=== PATIENT | female | born 1935 | race Caucasian/White ===

== ENCOUNTER → 2016-09-02 | Outpatient (CLI) | payer OTHER ==
[~2016-09-02] MED LIST: ALPOPS1510 OPL; AMLO2.5T PO; CSPOPS OPL; DVN160125 PO; LOVA40TA4 PO; PRED1SUS3; [UNRECOGNIZED DRUG - OTHER] OPL
[2016-09-02 09:45] LABS: ALT/SGPT 23 U/L (12-78); BLOOD UREA NITROGEN 29 mg/dl (7-18); BUN/CREATININE RATIO 23.9 (10-20); CARBON DIOXIDE 28 mmol/L (21-32); CHLORIDE 105 mmol/L (98-107); GLUCOSE 86 mg/dl (70-99); POTASSIUM 3.9 mmol/L (3.5-5.1); SODIUM 142 mmol/L (136-145)
[2016-09-02 09:55] LABS: ALKALINE PHOSPHATASE 64 U/L (45-117); AST/SGOT 21 U/L (15-37)
== END | disposition home or self-care (01) ==
LOC: C.LAB1850 07:33
PROVIDERS: ATTEND Internal Medicine
DX: E78.5 Hyperlipidemia, unspecified (principal); M81.0 Age-related osteoporosis without current pathological fracture; I10 Essential (primary) hypertension

== ENCOUNTER → 2016-12-25 | Outpatient (CLI) | payer OTHER ==
[2016-12-25 10:08] LABS: ALT/SGPT 20 U/L (12-78); AST/SGOT 17 U/L (15-37); BLOOD UREA NITROGEN 24 mg/dl (7-18); BUN/CREATININE RATIO 21.9 (10-20); CALCIUM 9.4 mg/dl (8.5-10.1); CARBON DIOXIDE 27 mmol/L (21-32); CHLORIDE 102 mmol/L (98-107); GLUCOSE 85 mg/dl (70-99); POTASSIUM 3.7 mmol/L (3.5-5.1); SODIUM 138 mmol/L (136-145)
[2016-12-25 10:19] LABS: ALB/GLOB RATIO 1.1 (0.9-2); ALKALINE PHOSPHATASE 59 U/L (45-117)
== END | disposition home or self-care (01) ==
LOC: C.LAB1850 07:35
PROVIDERS: ATTEND Internal Medicine
DX: M81.0 Age-related osteoporosis without current pathological fracture (principal); I10 Essential (primary) hypertension; E78.5 Hyperlipidemia, unspecified

== ENCOUNTER → 2017-06-24 | Outpatient (CLI) | payer OTHER ==
[2017-06-24 09:54] LABS: HEMATOCRIT 39.5 % (37-47); HEMOGLOBIN 13.3 g/dL (12.0-16.0); MEAN CELL VOLUME 100.8 fL (80-100); MEAN CORPUSCULAR HEMOGLOBIN 33.9 pg (25-34); MEAN CORPUSCULAR HGB CONC 33.7 g/dl (32-36); MEAN PLATELET VOLUME 9.8 fL (7.4-10.4); PLATELET COUNT 311 K/uL (130-400); RED CELL DISTRIBUTION WIDTH CV 13.5 % (11.5-14.5); RED CELL DISTRIBUTION WIDTH SD 49.3 fL (36.4-46.3); WHITE BLOOD COUNT 7.42 K/uL (4.8-10.8)
[2017-06-24 10:26] LABS: ALT/SGPT 23 U/L (12-78); AST/SGOT 16 U/L (15-37); BLOOD UREA NITROGEN 22 mg/dl (7-18); CALCIUM 9.4 mg/dl (8.5-10.1); CARBON DIOXIDE 28 mmol/L (21-32); CHOLESTEROL 233 mg/dl (0-200); CREATININE 1.27 mg/dl (0.60-1.20); GLUCOSE 91 mg/dl (70-99); POTASSIUM 3.6 mmol/L (3.5-5.1); SODIUM 138 mmol/L (136-145)
[2017-06-24 10:29] LABS: LDL CHOLESTEROL CALCULATED 109 mg/dl
== END | disposition home or self-care (01) ==
LOC: C.LAB1850 07:43
PROVIDERS: ATTEND Internal Medicine
DX: E78.5 Hyperlipidemia, unspecified (principal); I10 Essential (primary) hypertension; M81.0 Age-related osteoporosis without current pathological fracture

== ENCOUNTER 2018-05-16 09:16 | Inpatient (IN) ==
[2018-05-16] MEDS ORDERED: AMPICILLIN/SULBACTAM SOD 3,000 MG in 0.9 % SODIUM CHLORIDE 100 ML IV STA (09:50)
[2018-05-16 10:32] LABS: Basophils # (auto) 0.02 K/uL (0-0.2); Basophils % (auto) 0.2 %; Eosinophils # (auto) 0.04 K/uL (0-0.5); Eosinophils % (auto) 0.4 %; Hematocrit (blood only) 42.1 % (37-47); Hemoglobin 14.3 g/dL (12.0-16.0); Immature Granulocytes # (auto) 0.02 K/uL (0.00-0.02); Immature Granulocytes % (auto) 0.2 %; Lymphocytes # (auto) 1.52 K/uL (1.2-3.4); Lymphocytes % (auto) 16.3 %; Mean Corpuscular Volume 100.7 fL (80-100); Mean Platelet Volume 9.9 fL (7.4-10.4); Monocytes # (auto) 1.24 K/uL (0.11-0.59); Monocytes % (auto) 13.3 %; Neutrophils % (auto) 69.6 %; Platelet Count 306 K/uL (130-400); RDW Coefficient of Variation 13.2 % (11.5-14.5); RDW Standard Deviation 48.4 fL (36.4-46.3); Red Blood Count 4.18 M/uL (4.2-5.4); White Blood Count 9.34 K/uL (4.8-10.8)
--- NOTE | 2018-05-16 10:45 | History & Physical Report ---
Date of Service May 16, 2018 Assessment & Plan (1) Tenosynovitis: - Admit to med/surg - Continue unasyn for psuedomonas coverage from edwardo bite. No leukocytosis and afebrile upon admission. - Xray complete. Will check MRI of the R wrist. - Consult ortho for possible needs for I&D - Will make NPO for now until Xray and ortho recs. - Continue tylenol and morphine IV for pain relief (2) HTN (hypertension): - Cont amlodipine 2.5 mg daily, losartan-HCTZ 1 tab daily (3) High cholesterol: - Cont lovastatin 40 mg daily (4) Meningioma: - Subfrontal, s/p surg resection, origionally dx in [place] [address] Greene - Pt underwent gamma knife radiosurgery on 08/09/2017 which was uncomplicated. -Stable (5) Osteoporosis: - Follow Vit D level per PCP (6) Vitamin D deficiency: As above. 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 - Hydrate gently, NSS at 80 ml/hr x 10 hrs and keep NPO for possible surgery. (9) Hypokalemia: - 3.4 upon admission, replaced with 20 meq PO. Follow prp. (10) DVT prophylaxis: - Teds, scds, ambulatory. No chemical prophylaxis in the setting of possible surgical procedure. History of Present Illness Chief Complaint: Cat bite Primary Care Provider: Herberth Quiroz MD This is an 82 yo F with PMHx of HTN, glaucoma, meningioma s/p resection, HLD, osteoporosis, Vit D deficiency who presents after sustained edwardo bite to the R hand which occurred on 05/15/18. Pain, swelling and redness has worsened overnight and now she is having difficulty moving her fingers and wrist without pain. She denies fever or chills. She has taken ibuprofen for pain. Pt did not take her regularly scheduled medications this morning. Unasyn has been started in the ER, and xray of the hand is pending. Allergies Allergy/AdvReac Type Severity Reaction Status Date / Time codeine AdvReac Unknown NAUSEA Verified 02/18/19 10:28 prochlorperazine AdvReac Unknown NAUSEA Verified 05/16/18 10:28 Home Medications Home Medications Medication Instructions Recorded Confirmed Type amlodipine 2.5 mg PO DAILY 05/16/18 05/16/18 History brimonidine 1 drp OPL BID 05/16/18 05/16/18 History dorzolamide-timolol 1 drp OPL BID 05/16/18 05/16/18 History losartan-hydrochlorothiazide 1 tab PO DAILY 05/16/18 05/16/18 History lovastatin 40 mg PO DAILY 05/16/18 05/16/18 History tafluprost (PF) [Zioptan (PF)] 1 drp OPL QPM 05/16/18 05/16/18 History Past Med/Surg History Medical History Renal insufficiency Glaucoma Vitamin D deficiency Osteoporosis Tenosynovitis (Acute) HTN (hypertension) (Chronic) High cholesterol (Chronic) Meningioma (Resolved) Wrist fracture, left (Acute) Hx of glaucoma Family History Other Family history non-contributory Social History marital status: / Current Living Situation: Alone Current Living Situation Comment: debbi has apartment in patient's home current occupational status: retired Other Information That Helps Us Care for You: No Feels Safe at Home: Yes Smoking Status: Never smoker Do You Dip or Chew Tobacco: No Second Hand Exposure: No Tobacco Cessation Education Requested by Patient: No Hx Alcohol Use: Yes Alcohol type: wine Alcohol Intake Frequency: 0-2 drinks per day Hx Substance Use: Yes substance use type: does not use Beliefs That Will Affect Care: None Preferred Language: Zambian Communication Ability: Effective Nutrition Manager Required: No Review of Systems Constitutional: no fever, no chills, no sweats and no fatigue Eyes: no diplopia and no worsening vision Ear, Nose, Mouth, Throat: no dizziness, no nasal discharge, no facial pain and no sore throat Respiratory: no cough, no dyspnea and no wheezing Cardiovascular: no chest pain, no palpitations, no lightheadedness and no syncope Gastrointestinal: no nausea, no vomiting and no constipation no diarrhea Genitourinary (Female): no dysuria, no urinary frequency and no urinary incontinence Musculoskeletal: as per Subjective / HPI (involving the R wrist); no back pain and no muscle weakness Integumentary: no rash, no lesions and no wounds Neurologic: no gait abnormality, no falls, no numbness, no dizziness and no syncope Psychiatric: no depression and no anxiety Endocrine: no fatigue Physical Exam 2 Vital Signs (Past 24 Hours): Last Vital Signs Temp 36.6 C 05/16/18 09:21 Pulse 68 05/16/18 09:21 Resp 20 05/16/18 09:21 BP 113/70 05/16/18 09:21 Pulse Ox 97 05/16/18 09:21 Physical Exam: General: awake, alert, no apparent distress, appears much younger than stated age. Head: Normocephalic, atraumatic ENT: PERRL, EOMI, no pharyngeal exudate, mucous membranes moist Chest: Clear to auscultation, on room air, no adventitious breath sounds Cardiac: Regular rate and rhythm, no murmur, no JVD, normal peripheral pulses, good capillary refill Abdominal: NABS x 4 quadrants, soft, nontender to palpation, no rebound, guarding or tenderness Extremities: R hand edematous, bite michelet over posterior wrist, erythema extends up 1/3 of the forearm. No tenderness in the elbow. Pt is able to move all fingers but not full ROM due to edema and pain. Otherwise normal inspection, no peripheral edema or erythema, calfs nontender to palpation Psych: Normal mood and affect Neuro: AAO x 3, strength intact bilaterally and related 5/5, no motor deficits, speech is clear, no peripheral sensory deficits Code Status & VTE Plan Code Status FULL Supervising Physician Co-Signing Physician Notes Attending note: patient seen and examined with Maryam Jaramillo PA-C. I agree with her HPI, history, exam, ROS and A/P. I personally reviewed the labs and imaging findings. I discussed with Sebastian Linda with ortho. Patient had a cat bite last night on dorsal surface of right wrist. She noticed pain immediately and then the wrist and dorsal aspect of hand started to swell. No fever or chills over night. Erythema and swellling progressed, now she cannot move her fingers. She has experienced cat bites in the past but nothing this serious, just some cellulitis. Ortho saw patient in the ED, concerns for tenosynovitis, want to check MRI hand and wrist now. - Tenosynovitis: check MRI, start on Unasyn, IV fluids, keep NPO until decision made on surgery today, pain control for other details see the H&P
[2018-05-16 10:48] LABS: BUN Creatinine Ratio 19.6 (10-20); Calcium 9.2 mg/dl (8.5-10.1); Creatinine Clr Calc Pharmacy 24.3 ml/min; Est GFR (African American) 41.2; Est GFR (Non-African American) 35.5; Potassium 3.4 mmol/L (3.5-5.1)
[2018-05-16] MEDS ORDERED: POTASSIUM CHLORIDE 10 MEQ TABCR PO STA (11:00)
--- NOTE | 2018-05-16 11:10 | XRay Report ---
RIGHT WRIST 4 VIEWS HISTORY: Cat bite. COMPARISON: None. FINDINGS: There is no fracture or dislocation. The bones are osteopenic. Diffuse soft tissue swelling within the wrist and dorsum of the hand. No underlying bony destruction. Severe cartilage space narr owing at the first carpometacarpal joint and mild cartilage space narrowing at the radiocarpal joint. No radiopaque foreign bodies. IMPRESSION: 1. Soft tissue swelling within the wrist and dorsum of the hand. 2. No bony destruction. 3. No radiopaque foreign bodies. Electronically signed by: Aristeo Winter M.D. 05/16/2018 11:08 AM
[2018-05-16] MEDS ORDERED: ACETAMINOPHEN 325 MG TAB PO PRN (12:05)
[2018-05-16] MEDS ORDERED: MoRPHine SULFATE 4 MG/ML 1 ML CARP\\VIAL IV PRN ×2 (12:05)
[2018-05-16] MEDS ORDERED: ONDANSETRON INJ 2 MG/ML 2 ML VIAL IV PRN (12:05)
[2018-05-16] MEDS: SODIUM CHLORIDE 0.9% 1000ML 1,000 ML IV SCH ×2 (12:55→13:22)
[2018-05-16] MEDS ORDERED: GADOBUTROL 65ML VIAL IV PRN (15:34)
--- NOTE | 2018-05-16 16:03 | Magnetic Resonance Report ---
MR wrist RT wo/w con CLINICAL HISTORY: Wrist pain and swelling status post cat bite. Evaluate for deep soft tissue infecti on/tenosynovitis. COMPARISON STUDY: Commensurate radiographic study dated 05/16/2018 FINDINGS: Imaging was performed in the axial sagittal and coronal planes before and after the adminis tration of 4.5 cc of intravenous Gadavist. There are no areas of marrow edema to indicate osteomyelitis. There are advanced arthritic changes the level of the first carpal metacarpal joint. Bony erosions ar e visualized involving the radial styloid, as well distal fifth metacarpal, and multiple carpal bones . Bone marrow edema at the level the first carpometacarpal joint is felt to be on arthritic basis. There is a very small fluid collection adjacent to the pisiform. There is extensive dorsal soft tissue edema. There are no fluid collections to indicate an abscess. No tendon signal abnormalities are visualized. There is increased fluid within the dorsal extensor tendon compartment containing the second through fifth extensor digitorum tendons, and the extensor indices tendon. There is mild post gadolinium enha ncement. The findings are indicative of a tenosynovitis. IMPRESSION: 1. Dorsal tenosynovitis involving the extensor tendons 2. No evidence of abscess 3. Moderate dorsal soft tissue edema 4. Erosive arthropathy 5. No evidence of osteomyelitis Electronically signed by: Jadon Mcginnis M.D. 05/16/2018 4:01 PM
--- NOTE | 2018-05-16 17:46 | Orthopedic Consultation ---
Date of Consultation May 16, 2018 Assessment & Plan (1) H/O craniotomy: (2) Cat bite: I have discussed the case in detail with Dr. Mendoza. MRI results have been reviewed. No need for surgical intervention at this time. Plan will be to give her 24 hours of IV antibiotics to see how she responds. I discussed with the patient and her daughter who is present, that she may still need surgery if she does not improve. Continue current antibiotics and recheck tomorrow. History of Present Illness Reason for Consultation: Cat bite injury to right wrist and hand with cellulitis Attending Physician: Yeison Duval DO History of Present Illness Patient is an 82-year-old white female who states that she was petting her cat who would jumped up onto her shoulders. She states that the cat was acting normally and as she was putting her she lashed out and bit the patient near the right wrist. The patient states that she clean the area and placed ice on the wrist itself. She took some ibuprofen. This occurred last night. This morning she began having increasing pain in the right wrist and hand and noted some swelling and erythema. This continued to worsen and she came into the emergency room. She was seen by the staff. It was felt that she warranted admission for IV antibiotics and she was admitted by [facility] physician group hospitalist service. We have been asked to see her for her cellulitis. Allergies Allergy/AdvReac Type Severity Reaction Status Date / Time codeine AdvReac Unknown NAUSEA Verified 05/16/18 10:28 prochlorperazine AdvReac Unknown NAUSEA Verified 05/16/18 10:28 Home Medications Home Medications Medication Instructions Recorded Confirmed Type amlodipine 2.5 mg PO DAILY 05/16/18 05/16/18 History brimonidine 1 drp OPL BID 05/16/18 05/16/18 History dorzolamide-timolol 1 drp OPL BID 05/16/18 05/16/18 History losartan-hydrochlorothiazide 1 tab PO DAILY 05/16/18 05/16/18 History lovastatin 40 mg PO DAILY 05/16/18 05/16/18 History tafluprost (PF) [Zioptan (PF)] 1 drp OPL QPM 05/16/18 05/16/18 History Patient History Medical History Renal insufficiency Glaucoma Vitamin D deficiency Osteoporosis Tenosynovitis (Acute) HTN (hypertension) (Chronic) High cholesterol (Chronic) Meningioma (Resolved) Wrist fracture, left (Acute) Hx of glaucoma Surgical History H/O craniotomy Family History Other Family history non-contributory Social History marital status: / Current Living Situation: Alone Current Living Situation Comment: debbi has apartment in patient's home current occupational status: retired Other Information That Helps Us Care for You: No Feels Safe at Home: Yes Smoking Status: Never smoker Do You Dip or Chew Tobacco: No Second Hand Exposure: No Tobacco Cessation Education Requested by Patient: No Hx Alcohol Use: Yes Alcohol type: wine Alcohol Intake Frequency: 0-2 drinks per day Hx Substance Use: Yes substance use type: does not use Beliefs That Will Affect Care: None Preferred Language: French Communication Ability: 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 No recent fevers, chills, nausea or vomiting. No flu or cold-like symptoms. No increased cough or sputum production. No shortness of breath at rest on exertion. No chest pain, chest pressure, irregular heartbeat. History of hypertension. No unusual nausea, vomiting, diarrhea. No hematemesis or melena. History of renal insufficiency. No history of frequent urinary tract infection, burning on urination. History of meningioma with craniotomy in the past. Physical Exam 2 Vital Signs (Past 24 Hours): Last Vital Signs Temp 36.8 C 05/16/18 15:55 Pulse 64 05/16/18 15:55 Resp 17 05/16/18 15:55 BP 131/77 05/16/18 15:55 Pulse Ox 99 05/16/18 15:55 Physical Exam: Focusing on the right upper extremity, the patient has moderate erythema noted over the dorsum of the hand and wrist that started to go up the forearm. The swelling goes down to the MP joints across the dorsum of the hand. Bite schreiber from the cat are at the wrist and there is no obvious drainage noted at this time. She is some mild swelling into the fingers but has good sensation. She is able to move the fingers fairly well but is unable to make a fist due to pain and swelling. She does have some mildly increased pain with flexion. Passive extension of all the fingers produces minimal discomfort at this time. She has mild to moderate discomfort with attempting wrist flexion and extension. She is able to do some flexion and extension at this time but is decreased due to swelling and pain. The erythema does travel medial and lateral to the wrist but does not completely encompass the volar aspect. She has no pain on palpation of the forearm as we proceed proximally and no pain at the elbow with good range of motion at the elbow. She has no pain in the axilla and no pain in the shoulder. No gross motor or sensory loss seen at this time. _ (1) Cat bite Encounter type: initial encounter Qualified Code(s): W55.01XA - Bitten by cat , initial encounter
--- NOTE | 2018-05-16 17:47 | Emergency Department Note ---
Entered by Sanjuana Bailey acting as a scribe for History of Present Illness General Chief complaint: Animal Bite Stated complaint: CAT BITE, R HAND SWELLING Time Seen by Provider: 05/16/18 09:37 Source: patient History of Present Illness Onset (ago): day(s) (last evening) Location: right (hand) Pain Consistency: + other (episode) Maximum Pain Intensity: 8 Quality: + other (cat bite) Relieved By: + rest Exacerbated By: + movement Associated symptoms: + loss of appetite; no fever/chills and no nausea/vomiting (vomiting) The patient is an 82 year old female who presents to the Emergency Room with complaints of an episode of a cat bite occurring yesterday. The patient states that yesterday her cat bit her in her right hand. She states that this is not the first time the cat has bit her. She reports that last evening her hand turned black and blue so she put ice on it. She states that she thought it would be better by morning, but instead her entire hand was swollen. She reports that the pain in her hand is worse with movement and better with rest. The patient notes that the cat is immunized. She notes that she is up to date on her Tetanus. The patient complains of loss of appetite. The patient denies chills, fever, vomiting, and a history of diabetes. Home Medications Home Medications Medication Instructions Recorded Confirmed Type amlodipine 2.5 mg PO DAILY 05/16/18 05/16/18 History brimonidine 1 drp OPL BID 05/16/18 05/16/18 History dorzolamide-timolol 1 drp OPL BID 05/16/18 05/16/18 History losartan-hydrochlorothiazide 1 tab PO DAILY 05/16/18 05/16/18 History lovastatin 40 mg PO DAILY 05/16/18 05/16/18 History tafluprost (PF) [Zioptan (PF)] 1 drp OPL QPM 05/16/18 05/16/18 History Allergies Allergy/AdvReac Type Severity Reaction Status Date / Time codeine AdvReac Unknown NAUSEA Verified 05/16/18 10:28 prochlorperazine AdvReac Unknown NAUSEA Verified 05/16/18 10:28 Past Med/Surg History Medical History Renal insufficiency Glaucoma Vitamin D deficiency Osteoporosis Tenosynovitis (Acute) HTN (hypertension) (Chronic) High cholesterol (Chronic) Meningioma (Resolved) Wrist fracture, left (Acute) Hx of glaucoma Surgical History H/O craniotomy Family History Other Family history non-contributory Social History marital status: / Current Living Situation: Alone Current Living Situation Comment: debbi has apartment in patient's home current occupational status: retired Other Information That Helps Us Care for You: No Feels Safe at Home: Yes Smoking Status: Never smoker Do You Dip or Chew Tobacco: No Second Hand Exposure: No Tobacco Cessation Education Requested by Patient: No Hx Alcohol Use: Yes Alcohol type: wine Alcohol Intake Frequency: 0-2 drinks per day Hx Substance Use: Yes substance use type: does not use Beliefs That Will Affect Care: None Preferred Language: Fijian Communication Ability: Effective Senior Category Manager Required: No Review of Systems See HPI for pertinent positives & negatives. and A total of 10 systems reviewed and were otherwise negative Physical Exam Vital Signs Vital Signs - 24 hr 05/16/18 09:21 05/16/18 11:30 05/16/18 13:27 Temperature 36.6 C 36.6 C Temperature Source Oral Oral Sepsis Recent Fever Within 48 Hours No Sepsis Action Taken by Nursing No Action Required Pulse Rate 68 Pulse Rate [Right Finger] 57 L 61 Pulse Rhythm Regular Pulse Strength Normal Respiratory Rate 20 16 18 Respiratory Effort / Characteristics Non-Labored Spontaneous Respiratory Depth Normal Respiratory Pattern Regular Blood Pressure 113/70 Blood Pressure [Left Arm] 133/73 122/78 Blood Pressure Mean 84 Blood Pressure Mean [Left Arm] 93 92 Blood Pressure Position Sitting Blood Pressure Position [Left Arm] Sitting Pulse Oximetry 97 100 97 Oxygen Delivery Method Room Air Room Air Room Air 05/16/18 15:55 Temperature 36.8 C Temperature Source Oral Sepsis Recent Fever Within 48 Hours Sepsis Action Taken by Nursing Pulse Rate Pulse Rate [Right Finger] 64 Pulse Rhythm Pulse Strength Respiratory Rate 17 Respiratory Effort / Characteristics Respiratory Depth Respiratory Pattern Blood Pressure Blood Pressure [Left Arm] 131/77 Blood Pressure Mean Blood Pressure Mean [Left Arm] 95 Blood Pressure Position Blood Pressure Position [Left Arm] Lying Pulse Oximetry 99 Oxygen Delivery Method Room Air GENERAL: Patient is in no acute distress. HEENT: No acute trauma, normocephalic atraumatic, mucous membranes moist, no nasal congestion, no scleral icterus. NECK: No stridor, no adenopathy, no meningismus, trachea is midline. LUNGS: Clear to auscultation bilaterally, no wheeze, no rhonchi, breath sounds equal. HEART: Without murmurs gallops or rubs, regular rate and rhythm. ABDOMEN: Soft, nontender, bowel sounds positive, no hernias, no peritonitis. EXTREMITIES: Erythema and edema to the dorsal right hand and wrist. There is warmth. There are some non-draining puncture wounds seen to the dorsum of the wrist. There is significant pain with movement of the wrist in any direction. NVI distally. NEUROLOGIC: Oriented x 3, no acute motor or sensory deficits, no focal weakness. SKIN: No jaundice, no diaphoresis. Course 0940: Past medical records reviewed. The patient was evaluated in room B8, and a complete history and physical examination were performed. 0949: I paged the hospitalist at this time. 0953: I paged orthopedics at this time. 1028: I reviewed the patient's case with MARTIN Landon. She will evaluate the patient for further management. 1052: I discussed the patient's case with Sebastian Hankins. He is going to come see her. 1157: I reevaluated the patient and updated her on her test results. I discussed the treatment plan with her. She verbally agrees and understands. Consultations Consultation #1: I reviewed the patient's case with MARTIN Landon. She will evaluate the patient for further management. Time: 10:28 Consultation #2: I discussed the patient's case with [facility]. He is going to come see her. Time: 10:52 Administered Medications Gadobutrol (Gadavist 65ml) 4.5 ml IV ONCE PRN PRN Reason: Interaction Checking Stop: 05/20/18 15:33 Last Admin: 05/16/18 15:35 Dose: 4.5 ml Discontinued Medications Ampicillin Sodium/Sulbactam Sodium 3,000 mg/ Sodium Chloride 108 mls @ 200 mls/ hr IV NOW STA Stop: 05/16/18 10:22 Last Infusion: 05/16/18 11:08 Dose: Admin: 05/16/18 10:29 Dose: 200 mls/hr Sodium Chloride (Nss 1000ml) 1,000 mls @ 80 mls/hr IV .[id number] CARLEEN Stop: 05/16/18 13:01 Last Infusion: 05/16/18 14:03 Dose: 0 mls/hr Admin: 05/16/18 13:22 Dose: Not Given Admin: 05/16/18 12:55 Dose: 80 mls/hr Potassium Chloride (Klor-Con M10) 20 meq PO NOW STA Stop: 05/16/18 11:01 Last Admin: 05/16/18 11:09 Dose: 20 meq Medical Decision Making Differential Diagnosis Differential diagnoses include foreign body, tenosynovitis, septic joint, cellulitis, neurovascular compromise, abscess. Medical Records Attestation: I reviewed the patient's medical records. Home Medications Current Medication List: was personally reviewed by me Laboratory Data Attestation: I reviewed the patient's lab results. Result diagrams: 05/16/18 09:59 05/16/18 09:59 Lab Results 05/16/18 05/16/18 Range/Units 09:59 09:59 WBC 9.34 (4.8-10.8) K/uL RBC 4.18 L (4.2-5.4) M/uL Hgb 14.3 (12.0-16.0) g/dL Hct 42.1 (37-47) % MCV 100.7 H (80-100) fL MCH 34.2 H (25-34) pg MCHC 34.0 (32-36) g/dL RDW Std Deviation 48.4 H (36.4-46.3) fL RDW Coeff of Becca 13.2 (11.5-14.5) % Plt Count 306 (130-400) K/uL MPV 9.9 (7.4-10.4) fL Immature Gran % (Auto) 0.2 % Neut % (Auto) 69.6 % Lymph % (Auto) 16.3 % [place] % (Auto) 13.3 % Eos % (Auto) 0.4 % Baso % (Auto) 0.2 % Immature Gran # (Auto) 0.02 (0.00-0.02) K/uL Neut # (Auto) 6.50 (1.4-6.5) K/uL Lymph # (Auto) 1.52 (1.2-3.4) K/uL [place] # (Auto) 1.24 H (0.11-0.59) K/uL Eos # (Auto) 0.04 (0-0.5) K/uL Baso # (Auto) 0.02 (0-0.2) K/uL Sodium 136 (136-145) mmol/L Potassium 3.4 L (3.5-5.1) mmol/L Chloride 100 (98-107) mmol/L Carbon Dioxide 27 (21-32) mmol/L Anion Gap 9.0 (3-11) BUN 27 H (7-18) mg/dl Creatinine 1.38 H (0.6-1.2) mg/dl Est Cr Clr Drug Dosing 24.3 ml/min Est GFR ( Amer) 41.2 Est GFR (Non-Af Amer) 35.5 BUN/Creatinine Ratio 19.6 (10-20) Glucose 105 H (70-99) mg/dl Calcium 9.2 (8.5-10.1) mg/dl Imaging Data Radiologist's Impression: Radiology results as stated below per my review and the radiologist's interpretation: RIGHT WRIST 4 VIEWS HISTORY: Cat bite. COMPARISON: None. FINDINGS: There is no fracture or dislocation. The bones are osteopenic. Diffuse soft tissue swelling within the wrist and dorsum of the hand. No underlying bony destruction. Severe cartilage space narrowing at the first carpometacarpal joint and mild cartilage space narrowing at the radiocarpal joint. No radiopaque foreign bodies. IMPRESSION: 1. Soft tissue swelling within the wrist and dorsum of the hand. 2. No bony destruction. 3. No radiopaque foreign bodies. Electronically signed by: Aristeo Winter M.D. 05/16/2018 11:08 AM Blood Pressure Blood Pressure Findings: Normal blood pressure Blood Pressure Disposition: did not require urgent referral MDM Narrative There is no leukocytosis or concerning anemia. No significant electrolyte abnormality or kidney failure. Right wrist film does not show evidence for foreign body. On exam, the patient did have a tenosynovitis of the right wrist. I was able to remove her ring on the right hand. The patient received IV Unasyn as antibiotic coverage. I did speak to orthopedics who did an evaluation of the infection here in the ED. The patient deserves a hospital stay. She has a cat bite tenosynovitis. She may even have wrist joint involvement. She requires IV antibiotic therapy. I did speak to the patient at length, I talked to the field case manager. The on-call hospitalist was consulted. Impression & Plan Tenosynovitis, Cat bite Discharge Plan Visit Data *Final* Discharge Date/Time: 05/16/18 11:44 Chief Complaint: Animal Bite Stated Complaint: CAT BITE, R HAND SWELLING ED Provider: Avery Chanel Discharge Problem: Tenosynovitis, Cat bite Patient Disposition: Admitted As Inpatient Discharge Instructions Interventions: ED Discharge Assessment Last Done: 05/16/18 11:44 The scribe's documentation has been prepared under my direction and personally reviewed by me in its entirety. I confirm that the note above accurately reflects all work, treatment, procedures, and medical decision making performed by me.
[2018-05-16] MEDS ORDERED: Nursing to Pharmacy Communication ONE (19:32)
[2018-05-16] MEDS ORDERED: BRIMONIDINE TARTRATE 0.2% 5ML OPL SCH (21:00)
[2018-05-16] MEDS ORDERED: DORZOLAMIDE/TIMOLOL 22.3/6.8MG/ML 10 ML BTL OPL SCH (21:00)
[2018-05-16] MEDS: DORZOLAMIDE/TIMOLOL 22.3/6.8MG/ML 10 ML BTL OPL SCH (21:39)
[2018-05-16] MEDS: TAFLUPROST OPL SCH (21:40)
[2018-05-16] MEDS: BRIMONIDINE TARTRATE 0.2% 5ML OPL SCH (21:40)
[2018-05-16] MEDS: AMPICILLIN/SULBACTAM SOD 3,000 MG in 0.9 % SODIUM CHLORIDE 100 ML IV SCH (21:45)
[2018-05-17 07:07] LABS: Hematocrit (blood only) 35.9 % (37-47); Hemoglobin 12.1 g/dL (12.0-16.0); Mean Corpuscular Hgb Conc 33.7 g/dL (32-36); Mean Corpuscular Volume 100.3 fL (80-100); Mean Platelet Volume 9.6 fL (7.4-10.4); Platelet Count 247 K/uL (130-400); RDW Coefficient of Variation 13.1 % (11.5-14.5); RDW Standard Deviation 48.2 fL (36.4-46.3); Red Blood Count 3.58 M/uL (4.2-5.4); White Blood Count 8.31 K/uL (4.8-10.8)
[2018-05-17 07:40] LABS: Albumin Level 3.2 gm/dl (3.4-5.0); BUN Creatinine Ratio 19.4 (10-20); Calcium 8.7 mg/dl (8.5-10.1); Est GFR (African American) 55.4; Est GFR (Non-African American) 47.8; Potassium 3.7 mmol/L (3.5-5.1)
[2018-05-17 07:43] LABS: Albumin Globulin Ratio 0.9 (0.9-2); Bilirubin,Total 0.7 mg/dl (0.2-1); Globulin 3.6 gm/dl (2.5-4.0); Total Protein 6.8 gm/dl (6.4-8.2)
--- NOTE | 2018-05-17 08:39 | Orthopedic Progress Note ---
Date of Service May 17, 2018 Assessment & Plan (1) Cat bite: Overall improved this AM. Will restart her diet. No OR today. Will make NPO for tomorrow as precaution. Currently on renal dosing for Unasyn. If CrCl improves, possibly switch to q6 dosing if possible. Subjective Hospital day 1 with h/o Cat bite to right wrist. Pt states she feels better overall today. Less discomfort in the hand. She feels the swelling is down. No new complaints. She also feels she is getting better ROM of the fingers today. Physical Exam 2 Vital Signs (Past 24 Hours): Last Vital Signs Temp 36.8 C 05/17/18 07:57 Pulse 65 05/17/18 07:57 Resp 14 05/17/18 07:57 BP 111/71 05/17/18 07:57 Pulse Ox 97 05/17/18 07:57 Physical Exam: The hand/wrist looks better this AM. Much less swelling noted. Erythema a bit less proximally. ROM of fingers has improved. Wrist still somewhat sore with ROM. Sensation intact. Cap refill less than 2 seconds. _ (1) Cat bite Encounter type: initial encounter Qualified Code(s): W55.01XA - Bitten by cat , initial encounter
[2018-05-17] MEDS ORDERED: LOSARTAN POTASSIUM 50 MG TAB PO SCH (09:00)
[2018-05-17] MEDS ORDERED: LOVASTATIN 20 MG TAB PO SCH (09:00)
[2018-05-17] MEDS ORDERED: AMLODIPINE BESYLATE 5 MG TAB PO SCH (09:00)
[2018-05-17] MEDS: BRIMONIDINE TARTRATE 0.2% 5ML OPL SCH ×3 (09:19→19:37)
[2018-05-17] MEDS: LOSARTAN POTASSIUM 50 MG TAB PO SCH (09:31)
[2018-05-17] MEDS: hydroCHLOROthiazide 25 MG TAB PO SCH (09:32)
[2018-05-17] MEDS: AMLODIPINE BESYLATE 5 MG TAB PO SCH (09:34)
[2018-05-17] MEDS: LOVASTATIN 20 MG TAB PO SCH (09:34)
[2018-05-17] MEDS: DORZOLAMIDE/TIMOLOL 22.3/6.8MG/ML 10 ML BTL OPL SCH (09:38)
[2018-05-17] MEDS: AMPICILLIN/SULBACTAM SOD 3,000 MG in 0.9 % SODIUM CHLORIDE 100 ML IV SCH ×3 (10:26→21:38)
--- NOTE | 2018-05-17 17:33 | Hospitalist Progress Note ---
Date of Service May 17, 2018 Assessment & Plan (1) Tenosynovitis: infective tenosynovitis right hand. Continue unasyn for psuedomonas coverage from edwardo bite. Renal function is improved will increase dosing based upon a GFR greater than 30 -Orthopedics is following no plans on interventional surgery at this time - Continue tylenol and morphine IV for pain relief (2) HTN (hypertension): - Cont amlodipine 2.5 mg daily, losartan-HCTZ 1 tab daily (3) High cholesterol: - Cont lovastatin 40 mg daily (4) Meningioma: - Subfrontal, s/p surg resection, origionally dx in [place] [address] Greene - Pt underwent gamma knife radiosurgery on 08/09/2017 which was uncomplicated. -Stable mentation and neurological function (5) Osteoporosis: - Follow Vit D level per PCP (6) Vitamin D deficiency: As above. (7) Glaucoma: - Cont brimonidine, and dorzolamide-timolol drops patient requested adjustment of the frequency of her eyedrops this was accomplished on 05/17 (8) Renal insufficiency: Chronic kidney disease stage III with slight worsening of presentation improved after hydration (9) Hypokalemia: -Replete (10) DVT prophylaxis: - Teds, scds, ambulatory. No chemical prophylaxis in the setting of possible surgical procedure. (11) Underweight: BMI < 19.7 kg/m*m Subjective Patient noted subjective improvement of her hand swelling tenderness and ability to movement has improved. Orthopedics has been following our content with watchful waiting with antibiotic therapy for tenosynovitis likely associate with cat bite Review of Systems ROS: well nourished well developed. Looks much younger than her stated age No double vision blurry vision No problems with speech or swallowing No palpitations, chest pain or pressure No Wheezing or breathing issues No abdominal pain nausea vomiting diarrhea changes in appetite or weight No burning urine urine frequency or changes in color Still dorsal hand pain on the right some discoloration and swelling according to the patient No skin rashes or oral lesions No unusual bruising or bleeding No focused back pain or numbness or loss of strength No changes in memory or confusion Physical Exam 2 Vital Signs (Past 24 Hours): Last Vital Signs Temp 37.1 C 05/17/18 15:21 Pulse 68 05/17/18 15:21 Resp 14 05/17/18 15:21 BP 117/74 05/17/18 15:21 Pulse Ox 97 05/17/18 15:21 The patient appeared well nourished and normally developed. Vital signs as documented. No fevers noted Head exam is unremarkable. normocephalic, atraumatic Neck is without jugular venous distension, thyromegaly, or lymphademopathy Lungs are clear to auscultation and percussion. Cardiac exam reveals Rhythm is regular. First and second heart sounds normal. Abdominal exam reveals normal bowel sounds, no masses, no organomegaly Extremities dorsum of her hand is discolored is slightly edematous she cannot approximate her fingers to her palm she can almost completely straighten her finger she has good capillary refill and distal sensation to all her fingers Neurologic exam is A&Ox3, no focal deficits, strength is limited by pain in her right hand Psychologically seems neither anxious or depressed Skin is warm Dry with exception of the dorsum of right hand
[2018-05-17] MEDS: TAFLUPROST OPL SCH (21:38)
[2018-05-18] MEDS: AMPICILLIN/SULBACTAM SOD 3,000 MG in 0.9 % SODIUM CHLORIDE 100 ML IV SCH ×3 (04:08→17:35)
[2018-05-18 06:48] LABS: Hematocrit (blood only) 33.7 % (37-47); Hemoglobin 11.3 g/dL (12.0-16.0); Mean Corpuscular Hgb Conc 33.5 g/dL (32-36); Mean Corpuscular Volume 100.6 fL (80-100); Platelet Count 245 K/uL (130-400); RDW Standard Deviation 47.9 fL (36.4-46.3); Red Blood Count 3.35 M/uL (4.2-5.4); White Blood Count 7.26 K/uL (4.8-10.8)
[2018-05-18 07:15] LABS: Albumin Level 2.9 gm/dl (3.4-5.0); BUN Creatinine Ratio 20.6 (10-20); Calcium 8.4 mg/dl (8.5-10.1); Est GFR (African American) 55.4; Est GFR (Non-African American) 47.8; Potassium 3.6 mmol/L (3.5-5.1)
[2018-05-18 07:18] LABS: Albumin Globulin Ratio 0.8 (0.9-2); Bilirubin,Total 0.6 mg/dl (0.2-1); Globulin 3.6 gm/dl (2.5-4.0); Total Protein 6.5 gm/dl (6.4-8.2)
[2018-05-18] MEDS: BRIMONIDINE TARTRATE 0.2% 5ML OPL SCH ×3 (09:11→17:15)
[2018-05-18] MEDS: DORZOLAMIDE/TIMOLOL 22.3/6.8MG/ML 10 ML BTL OPL SCH ×2 (09:11→13:00)
[2018-05-18] MEDS: LOSARTAN POTASSIUM 50 MG TAB PO SCH (09:12)
[2018-05-18] MEDS: hydroCHLOROthiazide 25 MG TAB PO SCH (09:12)
[2018-05-18] MEDS: AMLODIPINE BESYLATE 5 MG TAB PO SCH (09:13)
[2018-05-18] MEDS: LOVASTATIN 20 MG TAB PO SCH (09:14)
--- NOTE | 2018-05-18 15:25 | Orthopedic Progress Note ---
Date of Service May 18, 2018 Assessment & Plan (1) Cat bite: Much improved today. Continue IV antibx. No surgery at this time. Will recheck in AM. Question need for IV vs PO when discharged. Subjective HD 2 s/p cat bite. Pt awake, alert. States her hand is feeling better overall. No new complaints. Has noticed the swelling and erythema have gone down. Pain controlled. Physical Exam 2 Vital Signs (Past 24 Hours): Last Vital Signs Temp 37.1 C 05/18/18 07:46 Pulse 64 05/18/18 07:46 Resp 17 05/18/18 07:46 BP 117/61 05/18/18 07:46 Pulse Ox 95 05/18/18 07:46 Physical Exam: Noticeable decrease in swelling and erythema over the whole hand. Much less pain on palplation over the dorsum of the hand. Unable to fully flex the fingers but able to extend well. Swelling in the fingers is less. Sensation intact. Cap refill less than 2 sec. No palpable fluid collections. _ (1) Cat bite Encounter type: initial encounter Qualified Code(s): W55.01XA - Bitten by cat , initial encounter
--- NOTE | 2018-05-18 16:37 | Hospitalist Progress Note ---
Date of Service May 18, 2018 Assessment & Plan (1) Tenosynovitis: infective tenosynovitis right hand. Will transition from Unasyn to Augmentin for coverage of her cat bite T no synovitis -Orthopedics is following no plans on interventional surgery at this time - Continue tylenol has not required parenteral medications for pain relief (2) HTN (hypertension): -Controlled with amlodipine 2.5 mg daily, losartan-HCTZ 1 tab daily (3) High cholesterol: Remains on lovastatin 40 mg daily (4) Meningioma: - Subfrontal, s/p surg resection, origionally dx [place] [address] Greene - Pt underwent gamma knife radiosurgery on 08/09/2017 which was uncomplicated. -Remains with stable mentation and neurological function (5) Osteoporosis: - (6) Vitamin D deficiency: As above. (7) Glaucoma: - Cont brimonidine, and dorzolamide-timolol drops patient requested adjustment of the frequency of her eyedrops this was accomplished on 05/17 (8) Renal insufficiency: Chronic kidney disease stage III with slight worsening of presentation improved after hydration (9) Hypokalemia: -Replete (10) DVT prophylaxis: - Teds, scds, ambulatory. No chemical prophylaxis in the setting of possible surgical procedure. (11) Underweight: BMI < 19.7 kg/m*m Subjective Patient feels marked improvement in her hand she is able to flex her hand more but cannot approximate her fingers she is able to extend her hand almost completely he is working on occupational therapy exercises at the bedside Review of Systems ROS: well nourished well developed. No double vision blurry vision No problems with speech or swallowing No palpitations, chest pain or pressure No Wheezing or breathing issues No abdominal pain nausea vomiting diarrhea changes in appetite or weight No burning urine urine frequency or changes in color Continues with some pain in the dorsal aspect of her hand No skin rashes or oral lesions Has receding bruising to the dorsum of her hand No focused back pain or numbness or loss of strength No changes in memory or confusion Physical Exam 2 Vital Signs (Past 24 Hours): Last Vital Signs Temp 36.5 C 05/18/18 16:21 Pulse 66 05/18/18 16:21 Resp 16 05/18/18 16:21 BP 112/68 05/18/18 16:21 Pulse Ox 95 05/18/18 16:21 The patient appeared well nourished and normally developed. Vital signs as documented. Head exam is unremarkable. normocephalic, atraumatic Neck is without jugular venous distension, thyromegaly, or lymphademopathy Lungs are clear to auscultation and percussion. Cardiac exam reveals Rhythm is regular. First and second heart sounds normal. Abdominal exam reveals normal bowel sounds, no masses, no organomegaly Extremities she has improved swelling and increased flexibility to her hand but is not still unable to completely approximate her fingers to her palm Neurologic exam is A&Ox3, no focal deficits, strength is equal bilateral Psychologically seems neither anxious or depressed Skin is warm Dry without bruises or lesions
[2018-05-18] MEDS: AMOXICILLIN/CLAVULANATE 500 MG TAB PO SCH (17:14)
[2018-05-18] MEDS: TAFLUPROST OPL SCH (20:58)
[2018-05-19 07:53] LABS: Hematocrit (blood only) 38.3 % (37-47); Hemoglobin 12.8 g/dL (12.0-16.0); Mean Corpuscular Hgb Conc 33.4 g/dL (32-36); Mean Corpuscular Volume 101.3 fL (80-100); Mean Platelet Volume 9.5 fL (7.4-10.4); Platelet Count 276 K/uL (130-400); RDW Coefficient of Variation 12.7 % (11.5-14.5); RDW Standard Deviation 46.8 fL (36.4-46.3); Red Blood Count 3.78 M/uL (4.2-5.4); White Blood Count 6.26 K/uL (4.8-10.8)
[2018-05-19 08:24] LABS: Albumin Level 3.2 gm/dl (3.4-5.0); Calcium 8.9 mg/dl (8.5-10.1); Creatinine Clr Calc Pharmacy 28.4 ml/min; Est GFR (African American) 49.7; Est GFR (Non-African American) 42.9; Potassium 3.5 mmol/L (3.5-5.1)
[2018-05-19 08:27] LABS: Albumin Globulin Ratio 0.8 (0.9-2); Bilirubin,Total 0.5 mg/dl (0.2-1); Globulin 4.1 gm/dl (2.5-4.0); Total Protein 7.3 gm/dl (6.4-8.2)
[2018-05-19] MEDS: hydroCHLOROthiazide 25 MG TAB PO SCH (09:31)
[2018-05-19] MEDS: AMOXICILLIN/CLAVULANATE 500 MG TAB PO SCH (09:31)
[2018-05-19] MEDS: LOVASTATIN 20 MG TAB PO SCH (09:32)
[2018-05-19] MEDS: LOSARTAN POTASSIUM 50 MG TAB PO SCH (09:32)
[2018-05-19] MEDS: AMLODIPINE BESYLATE 5 MG TAB PO SCH (09:32)
[2018-05-19] MEDS: BRIMONIDINE TARTRATE 0.2% 5ML OPL SCH ×2 (09:32→14:36)
[2018-05-19] MEDS: DORZOLAMIDE/TIMOLOL 22.3/6.8MG/ML 10 ML BTL OPL SCH ×2 (09:33→14:36)
--- NOTE | 2018-05-19 10:15 | Orthopedic Progress Note ---
Date of Service May 19, 2018 Assessment & Plan (1) Cat bite: Patient continues to improve overall. No surgical intervention needed at this time. Continue IV antibiotics. Continue PT OT especially for finger range of motion. Orthopedics will sign off at this time. Please call with any questions. Subjective Hospital day 3 status post Bite. Patient is sitting up in bed reading. Pleasant and has no complaints today. States that her hand is continue to improve. Pain is controlled Physical Exam 2 Vital Signs (Past 24 Hours): Last Vital Signs Temp 36.9 C 05/19/18 07:57 Pulse 59 L 05/19/18 07:57 Resp 17 05/19/18 07:57 BP 119/74 05/19/18 07:57 Pulse Ox 97 05/19/18 07:57 Physical Exam: Her right hand continues to improve. The swelling is almost completely resolved. There is no overt erythema noted at this time. No areas of fluctuance around the bite wound itself. Her range of motion of her fingers is getting better. She is still unable to do a full range of motion and make a fist but is improving. Complete full extension of the fingers. Sensation is intact. _ (1) Cat bite Encounter type: initial encounter Qualified Code(s): W55.01XA - Bitten by cat , initial encounter
--- NOTE | 2018-05-19 19:01 | Discharge Summary ---
Date of Service May 19, 2018 Admission HPI Per Admitting Provider This is an 82 yo F with PMHx of HTN, glaucoma, meningioma s/p resection, HLD, osteoporosis, Vit D deficiency who presents after sustained edwardo bite to the R hand which occurred on 05/15/18. Pain, swelling and redness has worsened overnight and now she is having difficulty moving her fingers and wrist without pain. She denies fever or chills. She has taken ibuprofen for pain. Pt did not take her regularly scheduled medications this morning. Unasyn has been started in the ER, and xray of the hand is pending. Principal Diagnosis Infective tenosynovitis right hand secondary to Plate Discharge Exam Her hand has had very little swelling there is no tenderness she does have some restriction to flexion but full extension she is good sensation and distal capillary refill Discharge Data Allergies Allergy/AdvReac Type Severity Reaction Status Date / Time codeine AdvReac Unknown NAUSEA Verified 05/16/18 10:28 prochlorperazine AdvReac Unknown NAUSEA Verified 05/16/18 10:28 Consultations 05/16/18 10:30 ED Decision to Admit Stat 05/16/18 12:05 Consult Case Management - Discharge Planning Routine Consult Orthopedic Surgery Routine Ordered Studies 05/16/18 12:05 MR wrist RT wo/w con Stat Hospital Course (1) Tenosynovitis: infective tenosynovitis right hand. Will transition from Unasyn to Augmentin for coverage of her cat bite teno synovitis -Orthopedics is following no plans on interventional surgery at this time, she will follow up with ortho - Continue tylenol has not required parenteral medications for pain relief (2) HTN (hypertension): -Controlled with amlodipine 2.5 mg daily, losartan-HCTZ 1 tab daily (3) High cholesterol: Remains on lovastatin 40 mg daily (4) Meningioma: - Subfrontal, s/p surg resection, origionally dx [place] [address] Greene - Pt underwent gamma knife radiosurgery on 08/09/2017 which was uncomplicated. -Remains with stable mentation and neurological function (5) Osteoporosis: - (6) Vitamin D deficiency: As above. (7) Glaucoma: - Cont brimonidine, and dorzolamide-timolol drops patient requested adjustment of the frequency of her eyedrops this was accomplished on 05/17 (8) Renal insufficiency: Chronic kidney disease stage III (9) Hypokalemia: -Replete (10) DVT prophylaxis: - Teds, scds, ambulatory. No chemical prophylaxis in the setting of possible surgical procedure. (11) Underweight: BMI < 19.7 kg/m*m Total Time Total Time Spent Total Time Spent (In Minutes): greater than 30 minutes were required to prepare discharge Discharge Plan Discharge Items Patient Disposition: Home - Self-Care Reason For Visit: TENOSYNOVITIS Discharge Diagnosis: infectious tenosynovitis to right hand Discharge Goals: Decrease discomfort and Improve disease control Activity: Resume your previous activity Non-emergency contact: Primary Care Provider and Surgeon Call non-emergency contact if: you have any medication questions Follow-up/Referrals: Herberth Quiroz MD [Primary Care Provider] - 05/26/18 9:30 am (Please, follow up at Dr. Quiroz's office with his assistant director of financial aid, Veronica Alas PA-C, on May 26 at 9:30 am. *If you need to change this appointment, call the office at [phone].) Diet: Regular Addtl Provider Instructions: Please see outpt Occupational therapy Continue gentle range of motion exercises with the right hand to improve finger flexion and extension. Follow-up with Dr. Mendoza in 7-10 days for a recheck. Prescriptions: New amoxicillin-pot clavulanate 500-125 mg Tablet 1 tab PO BIDM Qty: 14 RF: 0 Continue lovastatin 40 mg tablet 40 mg PO DAILY RF: 0 amlodipine 2.5 mg tablet 2.5 mg PO DAILY RF: 0 dorzolamide-timolol 22.3-6.8 mg/mL drops 1 drp OPL BID RF: 0 losartan-hydrochlorothiazide 100-12.5 mg tablet 1 tab PO DAILY RF: 0 tafluprost (PF) 0.0015 % dropperette 1 drp OPL QPM RF: 0 Changed brimonidine 0.2 % drops 1 drp OPL TID Qty: 0 RF: 0 Stand-Alone Forms: [facility] Discharge Orders: Discharge Order (Routine); Ordered 05/19/18 Ordered By: Mukund Whitten Admission Data Admit Date/Time: 05/16/18 11:58 Attending Provider: Mukund Whitten Admit Provider: Yeison Duval Primary Care Provider: Herberth Quiroz. Other Providers: Loki Chavira ; Yeison Duval Service: Medical Other Interventions: Discharge Summary Assessment (RN) Last Done: 05/19/18 14:17 DC Date/Time DO NOT enter until pt leaves facility: 05/19/18 15:20
== END 2018-05-19 15:20 | disposition home or self-care (01) | DRG 558 ==
LOC: ED 09:16 → 3N 11:44 → SUATTDRO 11:58 → 3N 11:58
DX: N18.3 Chronic kidney disease, stage 3 (moderate); E55.9 Vitamin D deficiency, unspecified; W55.01XA Bitten by cat, initial encounter; Z68.1 Body mass index [BMI] 19.9 or less, adult; I12.9 Hypertensive chronic kidney disease with stage 1 through stage 4 chronic kidney disease, or unspecified chronic kidney disease; M65.141 Other infective (teno)synovitis, right hand; Z86.011 Personal history of benign neoplasm of the brain; E87.6 Hypokalemia; M81.0 Age-related osteoporosis without current pathological fracture; R63.6 Underweight; H40.9 Unspecified glaucoma; Z88.5 Allergy status to narcotic agent